=== PATIENT | female | born 2000 | race Caucasian/White ===

== ENCOUNTER 2020-07-01 16:59 | Inpatient (IN) | payer OTHER ==
[~2020-07-01] VITALS: Ht 160 cm; Wt 84.4 kg
[2020-07-01 18:01] LABS: HEMOGLOBIN 12.2 gm/dl (12.3-15.3); RED BLOOD COUNT 3.88 M/UL (4.00-5.10); WHITE BLOOD COUNT 11.5 K/UL (4.5-11.0)
[2020-07-01] MEDS ORDERED: PRENATAL TABLE1 EAC1 PO (18:20)
[2020-07-01] MEDS ORDERED: FERROUS SULFAT325 MG PO (18:20)
[2020-07-02] MEDS ORDERED: DOCUSATE SODIU100 MG PO (16:24)
[2020-07-02] MEDS ORDERED: HYDROCODON-ACE1 EAC4 PO (16:24)
[2020-07-02] MEDS ORDERED: IBUPROFEN600 MG PO (16:24)
== END 2020-07-04 15:37 | disposition home or self-care (01) | DRG 807 ==
LOC: GENOP 16:59 → OB 17:15
PROVIDERS: ADMIT Obstetrics & Gynecology
PROC: 0U7C7ZZ Dilation of Cervix, Via Natural or Artificial Opening (ICD-10-PCS; principal; 2020-07-01)
PROC: 4A1HX4Z Monitoring of Products of Conception, Cardiac Electrical Activity, External Approach (ICD-10-PCS; 2020-07-01)
PROC: 10E0XZZ Delivery of Products of Conception, External Approach (ICD-10-PCS; 2020-07-02)
PROC: 10907ZC Drainage of Amniotic Fluid, Therapeutic from Products of Conception, Via Natural or Artificial Opening (ICD-10-PCS; 2020-07-02)
PROC: 0HQ9XZZ Repair Perineum Skin, External Approach (ICD-10-PCS; 2020-07-02)
DX: O48.0 Post-term pregnancy (principal); Z37.0 Single live birth; Z3A.40 40 weeks gestation of pregnancy; O70.0 First degree perineal laceration during delivery; Z20.822 Contact with and (suspected) exposure to COVID-19
CPT/HCPCS: 36415; 51702; 80307; 81001; 82800; 85014; 85018; 85025; J2405; J2590; J2795; U0002